=== PATIENT | male | born 1950 ===

== ENCOUNTER 2017-02-22 15:59 | Emergency (ER) | payer MEDICARE ==
[2017-02-22 17:11] VITALS: RESP 20; O2SAT 97
--- NOTE | 2017-02-22 18:07 | C.PDOC ---
History Of Present Illness 66 yr male presents to the ER with complaints of swelling to the upper front tooth gum, with pain and headache for 1 day. Patient also reports of chronic back pain. Patient denies fever, nausea, vomiting, abdominal pain, diarrhea, dysuria, weakness or numbness. Time Seen by Provider: 02/22/17 17:16 Chief Complaint (Nursing): Headache History Per: Patient History/Exam Limitations: no limitations Onset/Duration Of Symptoms: Days (1) Current Symptoms Are (Timing): Still Present Pain Scale Rating Of: 5 Recent travel outside of the [place]: No Past Medical History Reviewed: Historical Data, Nursing Documentation, Vital Signs Vital Signs: Last Vital Signs Temp 98.7 F 02/22/17 18:31 Pulse 104 H 02/22/17 18:31 Resp 20 02/22/17 18:31 BP 152/62 H 02/22/17 18:31 Pulse Ox 97 02/22/17 18:31 Family History: States: No Known Family Hx - Social History Hx Alcohol Use: Yes Hx Substance Use: No - Immunization History Hx Tetanus Toxoid Vaccination: No Hx Influenza Vaccination: No Hx Pneumococcal Vaccination: No Review Of Systems Except As Marked, All Systems Reviewed And Found Negative. Constitutional: Negative for: Fever ENT: Positive for: Other ((+) Swelling and pain to the upper front tooth gum) Gastrointestinal: Negative for: Nausea, Vomiting, Abdominal Pain, Diarrhea Genitourinary: Negative for: Dysuria Musculoskeletal: Positive for: Back Pain (Chronic back pain) Neurological: Negative for: Weakness, Numbness Physical Exam - Physical Exam Appears: Non-toxic, No Acute Distress Skin: Warm, Dry, No Rash Head: Atraumatic, Normacephalic Eye(s): bilateral: Normal Inspection, PERRL, EOMI Oral Mucosa: Moist Teeth: Other (Poor dentition. Right central incisor tender. ) Gingiva: Swelling (To the base of right central incisor.) Throat: Normal, No Erythema, No Exudate Neck: Normal, Normal ROM, Supple Lymphatic: Normal Exam, No Adenopathy Chest: Symmetrical, No Tenderness Cardiovascular: Rhythm Regular, No Friction Rub, No Murmur Respiratory: Normal Breath Sounds, No Rales, No Rhonchi, No Stridor, No Wheezing Extremity: Normal ROM, No Swelling Neurological/Psych: Oriented x3, Normal Speech, Normal Motor Gait: Steady ED Course And Treatment O2 Sat by Pulse Oximetry: 97 (on RA) Pulse Ox Interpretation: Normal Medical Decision Making Medical Decision Making: PLAN: * Flexeril PO * Motrin PO On re-exam, the patient reports improvement of symptoms. Lungs remain CTA, heart is RRR, abdomen is soft, non-tender and tolerating PO well. Ambulatory in the ED with steady gait. Follow up with the medical doctor within 1-2 days without fail, Return if worsened, Disposition - Disposition Referrals: Oliver Rodriguez DMD [Staff Provider] - Disposition: HOME/ ROUTINE Disposition Time: 18:31 Condition: STABLE Additional Instructions: Follow up with the Dentist within 1-2 days without fail, Return if worsened, Prescriptions: Amoxicillin/Clavulanate [Augmentin 875 MG-125 MG] 1 tab PO BID #14 tab Ibuprofen [Motrin Tab] 800 mg PO TID #20 tab traMADol [Ultram] 50 mg PO Q6 PRN #15 tab PRN Reason: Pain Instructions: Dental Abscess (ED) Print Language: SYRIAC - Clinical Impression Clinical Impression: Headache, Dental abscess - 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 - Scribe Statement The provider has reviewed the documentation as recorded by the Scribe Jessica Maldonado All medical record entries made by the Aftabibkingston were at my direction and personally dictated by me. I have reviewed the chart and agree that the record accurately reflects my personal performance of the history, physical exam, medical decision making, and the department course for this patient. I have also personally directed, reviewed, and agree with the discharge instructions and disposition.
[2017-02-22 18:32] VITALS: BP 152/62; PULSE 104; TEMP 98.7
== END 2017-02-22 18:35 | disposition home or self-care (01) ==
LOC: EDBD → C.ER 15:59
DX: K04.7 Periapical abscess without sinus (principal); R51 Headache

== ENCOUNTER 2017-02-23 01:47 | Emergency (ER) | payer MEDICARE ==
[2017-02-23 02:11] VITALS: O2SAT 98
--- NOTE | 2017-02-23 03:22 | C.PDOC ---
History Of Present Illness 66 year old patient presents to the ED complaining of dental pain. Patient was seen in the ED yesterday for the same complaint. He was discharged with prescription for pain medications, but patient reports he does not have money to buy them. Patient also complains of chronic back pain. Patient denies any trauma, numbness, weakness, or incontinence. Time Seen by Provider: 02/23/17 02:20 Chief Complaint (Nursing): Dental Pain History Per: Patient History/Exam Limitations: no limitations Onset/Duration Of Symptoms: Days (1) Current Symptoms Are (Timing): Still Present Severity: Mild Pain Scale Rating Of: 3 Quality: Positive for: "Pain" Recent travel outside of the [place]: No Additional History Per: Prior Records Past Medical History Reviewed: Historical Data, Nursing Documentation, Vital Signs Vital Signs: Last Vital Signs Temp 98.3 F 02/23/17 03:44 Pulse 78 02/23/17 03:44 Resp 16 02/23/17 03:44 BP 147/92 H 02/23/17 03:44 Pulse Ox 98 02/23/17 06:14 Family History: States: Unknown Family Hx - Social History Hx Alcohol Use: Yes Hx Substance Use: No - Immunization History Hx Tetanus Toxoid Vaccination: No Hx Influenza Vaccination: No Hx Pneumococcal Vaccination: No Review Of Systems Except As Marked, All Systems Reviewed And Found Negative. ENT: Positive for: Other (dental pain) Genitourinary: Negative for: Incontinence Musculoskeletal: Positive for: Back Pain Neurological: Negative for: Weakness, Numbness Physical Exam - Physical Exam Appears: Non-toxic, No Acute Distress Skin: Warm, Dry Head: Atraumatic, Normacephalic Eye(s): bilateral: Normal Inspection, PERRL, EOMI Tongue: Normal Appearing Lips: Normal Appearing Teeth: Other (Poor dentition. Right central incisor tender) Gingiva: Swelling (To the base of right central incisor) Throat: Normal Neck: Normal ROM, Supple Chest: Symmetrical Cardiovascular: Rhythm Regular Back: No CVA Tenderness, Other (mild paralumbar tenderness) Extremity: Normal ROM, No Calf Tenderness, Capillary Refill (<2 seconds), No Deformity, Other (bilateral lower extremities: good strength and sensation) Neurological/Psych: Oriented x3, Normal Speech, Normal Cognition Gait: Steady ED Course And Treatment O2 Sat by Pulse Oximetry: 98 (RA) Pulse Ox Interpretation: Normal Progress Note: Flexeril and Toradol are given. Reassessment Condition: Improved (pt sleeping comfortably, reports feeling better) Disposition Counseled Patient/Family Regarding: Diagnosis, Need For Followup, Rx Given - Disposition Referrals: [facility] [Outside] Disposition: HOME/ ROUTINE Disposition Time: 03:22 Condition: STABLE Additional Instructions: Take meds Follow up in clinic Return to ER if worse Instructions: Back Pain (ED), Toothache (ED) - Clinical Impression Clinical Impression: Back pain - PA / NURSE ORTHOPEDIC / Resident Statement MD/DO has reviewed & agrees with the documentation as recorded. - Scribe Statement The provider has reviewed the documentation as recorded by the Scribe Becky Jeffery All medical record entries made by the Scribe were at my direction and personally dictated by me. I have reviewed the chart and agree that the record accurately reflects my personal performance of the history, physical exam, medical decision making, and the department course for this patient. I have also personally directed, reviewed, and agree with the discharge instructions and disposition.
[2017-02-23 03:45] VITALS: BP 147/92; PULSE 78; RESP 16; TEMP 98.3
== END 2017-02-23 03:55 | disposition home or self-care (01) ==
LOC: C.ER 01:47 → EDBD 01:47 → C.ER 03:55
DX: M54.9 Dorsalgia, unspecified (principal)
CPT/HCPCS: 96372; 99283; J1885

== ENCOUNTER 2017-10-27 09:40 | Emergency (ER) | payer MEDICARE ==
[2017-10-27 09:45] VITALS: TEMP 98.6; O2SAT 98
[2017-10-27] MEDS ORDERED: Naproxen 550 mg Tab PO STA (10:52)
[2017-10-27] MEDS ORDERED: Naproxen 550 mg Tab PO ONE (10:58)
--- NOTE | 2017-10-27 11:17 | C.PDOC ---
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 Onset/Duration Of Symptoms: Days (1) Current Symptoms Are (Timing): Still Present Severity: Moderate Description Of Pain/Injury (Context): Pt has loose teeth already and granddaugher hit his mouth yesterday Quality: Positive for: "Pain" Additional History Per: Prior Records Past Medical History Reviewed: Historical Data, Nursing Documentation, Vital Signs Vital Signs: Last Vital Signs Temp 98.6 F 10/27/17 09:43 Pulse 100 H 10/27/17 09:43 Resp 18 10/27/17 09:43 BP 168/82 H 10/27/17 09:43 Pulse Ox 98 10/27/17 09:43 - Medical History PMH: No Chronic Diseases Family History: States: Unknown Family Hx - Social History Hx Alcohol Use: Yes Hx Substance Use: No - Immunization History Hx Tetanus Toxoid Vaccination: No Hx Influenza Vaccination: No Hx Pneumococcal Vaccination: No Review Of Systems Except As Marked, All Systems Reviewed And Found Negative. Constitutional: Negative for: Fever, Weakness ENT: Positive for: Mouth Pain. Negative for: Throat Pain Cardiovascular: Negative for: Chest Pain Respiratory: Negative for: Shortness of Breath Gastrointestinal: Negative for: Vomiting Musculoskeletal: Negative for: Neck Pain Neurological: Negative for: Headache Physical Exam - Physical Exam Appears: Non-toxic, No Acute Distress Skin: Normal Color, Warm, Dry, No Rash Head: Atraumatic, Normacephalic Eye(s): bilateral: Normal Inspection, PERRL, EOMI Oral Mucosa: Moist, No Drooling, No Trismus Lips: Normal Appearing Teeth: Caries, Tender To Palpation (upper incisors), Loose, No Avulsed, Other ( Very poor dentition) Gingiva: Tender, No Bleeding Throat: Normal Neck: Normal ROM, Supple Lymphatic: No Adenopathy Extremity: Normal ROM Neurological/Psych: Oriented x3, Normal Speech, Normal Cognition, Normal Cranial Nerves ED Course And Treatment O2 Sat by Pulse Oximetry: 98 Pulse Ox Interpretation: Normal Disposition Counseled Patient/Family Regarding: Diagnosis, Need For Followup, Rx Given - Disposition Referrals: [facility] [Outside] Disposition: HOME/ ROUTINE Disposition Time: : Condition: STABLE Additional Instructions: Eat a soft diet. Follow up wit a Dentist as soon as possible. Return to the ER if you develop worsening of symptoms or if you have any other concerns. Prescriptions: Naproxen [Naprosyn] 1 tab PO BID PRN #20 tab PRN Reason: Pain Instructions: Acute Dental Trauma (ED) Forms: [employer] (Uruguayan), [facility] Print Language: SWEDISH - Clinical Impression Clinical Impression: Loose, teeth
[2017-10-27 11:31] VITALS: BP 121/75; PULSE 78; RESP 16
== END 2017-10-27 11:30 | disposition home or self-care (01) ==
LOC: C.ER 09:40
DX: K08.89 Other specified disorders of teeth and supporting structures (principal)

== ENCOUNTER 2018-01-23 02:36 | Emergency (ER) | payer MEDICARE, MEDICAID ==
--- NOTE | 2018-01-23 03:35 | C.PDOC ---
History Of Present Illness 67 year old male presents to the ED for evaluation of RLQ pain since yesterday. No fever or chills. Pain radiates to back and to groin. Patient is known to have a large right inguinal hernia. Patient endorses daily alcohol. Time Seen by Provider: 01/23/18 03:35 Chief Complaint (Nursing): Abdominal Pain History Per: Patient History/Exam Limitations: no limitations Onset/Duration Of Symptoms: Days Current Symptoms Are (Timing): Still Present Severity: Mild Pain Scale Rating Of: 4 Location Of Pain/Discomfort: RLQ Radiation Of Pain To:: Back, Other (Groin) Associated Symptoms: denies: Fever, Chills Recent travel outside of the [place]: No Past Medical History Reviewed: Historical Data, Nursing Documentation, Vital Signs Vital Signs: Last Vital Signs Temp 98.1 F 01/23/18 05:13 Pulse 87 01/23/18 05:13 Resp 16 01/23/18 05:13 BP 127/74 01/23/18 05:13 Pulse Ox 96 01/23/18 05:13 Family History: States: Unknown Family Hx - Social History Hx Alcohol Use: Yes Hx Substance Use: No - Immunization History Hx Tetanus Toxoid Vaccination: No Hx Influenza Vaccination: No Hx Pneumococcal Vaccination: No Review Of Systems Constitutional: Negative for: Fever, Chills ENT: Negative for: Ear Pain, Throat Pain Cardiovascular: Negative for: Chest Pain Respiratory: Negative for: Cough, Shortness of Breath Gastrointestinal: Positive for: Abdominal Pain. Negative for: Nausea, Vomiting , Diarrhea Genitourinary: Negative for: Dysuria, Frequency Musculoskeletal: Positive for: Back Pain Skin: Negative for: Rash Neurological: Negative for: Headache Physical Exam - Physical Exam Appears: Non-toxic, No Acute Distress Skin: Warm, Dry Head: Normacephalic Eye(s): bilateral: Normal Inspection Oral Mucosa: Moist Neck: Trachea Midline, Supple Chest: Symmetrical Cardiovascular: Rhythm Regular (Rate Regular ) Respiratory: No Rales, No Rhonchi, No Wheezing Gastrointestinal/Abdominal: Soft, Tenderness (Right lower quadrant tenderness with voluntary guarding ) Back: CVA Tenderness (Right ) Male Genital: Testicular Tenderness, Testicular Swelling (left), No Circumcised (Uncircumcised male ), Other (chronic right inguinal canal tenderness with enlarged scrotum) Extremity: Normal ROM, Other (DP pulses 2+) Extremity: Bilateral: Atraumatic Neurological/Psych: Oriented x3 Gait: Steady ED Course And Treatment - Laboratory Results Result Diagrams: 01/23/18 03:59 01/23/18 03:59 Disposition Counseled Patient/Family Regarding: Studies Performed, Diagnosis - Disposition Disposition Time: 03:35 Condition: FAIR Forms: [facility] (Yi) - Clinical Impression Clinical Impression: Abdominal pain, Hydrocele - Scribe Statement The provider has reviewed the documentation as recorded by the Scribe (Ivan Bush) Provider Attestation: All medical record entries made by the Scribe were at my direction and personally dictated by me. I have reviewed the chart and agree that the record accurately reflects my personal performance of the history, physical exam, medical decision making, and the department course for this patient. I have also personally directed, reviewed, and agree with the discharge instructions and disposition. Physician Patient Turnover Patient Signed Over To: Tim Mccullough DO Handoff Comments: pending testicular US and disposition
[2018-01-23] MEDS ORDERED: Sodium Chloride 0.9% 1,000 ML IV ONE (03:39)
[2018-01-23 04:02] LABS: BASO # 0.1 K/uL (0.0-0.2); BASO % 1.1 % (0.0-2.0); EOS # 0.1 K/uL (0.0-0.7); EOS % 1.2 % (0.0-4.0); HEMOGLOBIN 12.4 g/dL (12.0-18.0); LYMPH # 2.9 K/uL (1.0-4.3); LYMPH % 37.6 % (20.0-40.0); MEAN CELL VOLUME 96.6 fL (80.0-94.0); MEAN CORPUSCULAR HEMOGLOBIN 33.1 pg (27.0-31.0); MEAN CORPUSCULAR HGB CONC 34.3 g/dL (33.0-37.0); MEAN PLATELET VOLUME 9.8 fL (7.2-11.7); MONO # 0.9 K/uL (0.0-0.8); MONO % 11.1 % (0.0-10.0); NEUT # 3.8 K/uL (1.8-7.0); RBC 3.75 Mil/uL (4.40-5.90); RED CELL DISTRIBUTION WIDTH 16.1 % (11.5-14.5); WHITE BLOOD COUNT 7.7 K/uL (4.8-10.8)
[2018-01-23 04:10] LABS: INR 0.9; PROTHROMBIN TIME 10.5 SECONDS (9.7-12.2)
[2018-01-23 04:16] LABS: ALB/GLOB RATIO 1.1 (1.0-2.1); ALBUMIN 4.4 g/dL (3.5-5.0); ALT/SGPT 27 U/L (21-72); AST/SGOT 51 U/L (17-59); BLOOD UREA NITROGEN 29 mg/dL (9-20); CALCIUM 8.6 mg/dl (8.6-10.4); GFR AFRICAN-AMERICAN > 60; GFR NON-AFRICAN AMERICAN > 60; LIPASE 370 U/L (23-300)
[2018-01-23] MEDS ORDERED: Sodium Chloride 0.9% 1,000 ML ONE (04:21)
[2018-01-23] MEDS ORDERED: Iodixanol 320 MG/ML 100 ML BOTTLE IV ONE (04:33)
[2018-01-23 05:13] VITALS: RESP 16
--- NOTE | 2018-01-23 05:57 | CT ---
EXAM: CT Abdomen and Pelvis With Intravenous Contrast EXAM DATE/TIME: 01/23/2018 3:40 AM CLINICAL HISTORY: 67 years old, male; Pain; Other: Rlq & testicular pain; Additional info: Rlq abd pain, testicular pain TECHNIQUE: Axial computed tomography images of the abdomen and pelvis with intravenous contrast. All CT scans at this facility use one or more dose reduction techniques, viz.: automated exposure control; ma/kV adjustment per patient size (including targeted exams where dose is matched to indication; i.e. head); or iterative reconstruction technique. Coronal and sagittal reformatted images were created and reviewed. CONTRAST: 100 mL of visipaque administered intravenously. COMPARISON: No relevant prior studies available. FINDINGS: The liver is normal. The spleen is normal. The pancreas is normal. No gallstones. No hydronephrosis or perinephric stranding. There is a 2 cm left adrenal lesion that could be further evaluated with MR if not done previously. The bowel appears normal. A normal appendix is identified images 100 through 115 coronal images 53 through 63. The anterior wall of the urinary bladder appears slightly thickened and distinct felt to be due to motion and underdistention. There is a left hydrocele. Ultrasound would be the imaging modality of choice for evaluation of the testicles. IMPRESSION: Left hydrocele that could be further evaluated with testicular ultrasound.
--- NOTE | 2018-01-23 10:18 | US ---
Scrotal ultrasound History: Left testicular pain and swelling. Comparison: None available. Technique: Real-time sonography was performed through the scrotum. Findings: Right testes: 3.6 x 1.7 x 2.4 centimeters. Heterogeneous echotexture. Normal flow. Right epididymis measures 7 x 6 x 6 millimeters. Normal flow. Small right scrotal hydrocele. Left testes: 2.1 x 0.8 x 1.3 centimeters. Diminutive. Heterogeneous echotexture. Normal flow. Large left scrotal hydrocele with associated internal septations and internal debris. Left epididymis measures 4 x 3 x 3 millimeters. Normal flow. Impression: Large left scrotal hydrocele with associated internal septations and internal debris. Diminutive appearance of the left testicle in comparison to the right. Clinical correlation. Small right scrotal hydrocele.
[2018-01-23 11:04] VITALS: BP 150/86; PULSE 84; TEMP 98; O2SAT 99
== END 2018-01-23 11:04 | disposition home or self-care (01) ==
LOC: C.ER 02:36
DX: N43.3 Hydrocele, unspecified (principal); R10.31 Right lower quadrant pain
CPT/HCPCS: 74177; 76870; 80053; 83690; 85025; 85610; 85730; 96374; 96375; 99285; J1885; J7040; Q9967

== ENCOUNTER 2018-05-12 17:31 | Emergency (ER) | payer OTHER ==
[2018-05-12 17:43] VITALS: O2SAT 99
[2018-05-12] MEDS ORDERED: Sodium Chloride 0.9% 1,000 ML IV ONE (18:20)
[2018-05-12 18:33] LABS: MONO # 0.3 K/uL (0.0-0.8); NEUT # 5.2 K/uL (1.8-7.0); NEUT % 76.4 % (50.0-75.0); NRBC % 0.1 % (0.0-2.0)
--- NOTE | 2018-05-12 18:40 | C.PDOC ---
History Of Present Illness 67 y/o male with no significant PMHx, presents to the ED for evaluation s/p near syncopal episode that occurred earlier today. States he was walking on the sidewalk today when his vision became dark and he felt dizzy. He lowered himself to the ground and sat for about 30 minutes as the dizziness, headache, and nausea continued. There was no LOC or head trauma. A neighbor saw him and called EMS. On arrival, patient states vision is no longer blurry. Currently the headache is rated at 6/10. Patient also complaining of neck pain, nausea, and generalized weakness. Otherwise denies chest pain, SOB, abdominal pain, or other complaints. Time Seen by Provider: 05/12/18 17:40 Chief Complaint (Nursing): Dizziness/Lightheaded History Per: Patient History/Exam Limitations: no limitations Onset/Duration Of Symptoms: Hrs Current Symptoms Are (Timing): Still Present Past Medical History Reviewed: Historical Data, Nursing Documentation, Vital Signs Vital Signs: Last Vital Signs Temp 98.4 F 05/12/18 17:42 Pulse 94 H 05/12/18 17:42 Resp 17 05/12/18 17:42 BP 129/86 05/12/18 17:42 Pulse Ox 99 05/12/18 20:54 - Medical History PMH: No Chronic Diseases Surgical History: No Surg Hx Family History: States: Unknown Family Hx - Social History Hx Tobacco Use: Yes Hx Alcohol Use: Yes Hx Substance Use: No - Immunization History Hx Tetanus Toxoid Vaccination: No Hx Influenza Vaccination: No Hx Pneumococcal Vaccination: No Review Of Systems Except As Marked, All Systems Reviewed And Found Negative. Constitutional: Positive for: Weakness (generalized) Cardiovascular: Negative for: Chest Pain Respiratory: Negative for: Shortness of Breath Gastrointestinal: Positive for: Nausea. Negative for: Abdominal Pain Musculoskeletal: Positive for: Neck Pain Neurological: Positive for: Headache, Dizziness Physical Exam - Physical Exam Appears: Non-toxic, No Acute Distress Skin: Normal Color, Warm, Dry Head: Atraumatic, Normacephalic Eye(s): bilateral: Normal Inspection, PERRL, EOMI Nose: Normal Oral Mucosa: Moist Neck: Normal ROM, No Midline Cervical Tenderness, Paracervical Tenderness Chest: Symmetrical, No Deformity Cardiovascular: Rhythm Regular, No Murmur Respiratory: Normal Breath Sounds, No Rales, No Rhonchi, No Wheezing Gastrointestinal/Abdominal: Soft, No Tenderness, No Distention Extremity: Bilateral: Atraumatic, Normal Color And Temperature, Normal ROM Pulses: Left Dorsalis Pedis: Normal, Right Dorsalis Pedis: Normal Neurological/Psych: Oriented x3, Normal Speech, Normal Cranial Nerves, Cerebellar Signs (normal), Normal Motor, Normal Sensation, Other (No focal deficits) Gait: Steady ED Course And Treatment - Laboratory Results Result Diagrams: 05/12/18 18:26 05/12/18 18:26 ECG: Interpreted By Me, Viewed By Me ECG Rhythm: Sinus Rhythm (at 86 bpm, with normal intervals, left axis deviation , no ST or T wave abnormalities) O2 Sat by Pulse Oximetry: 99 (RA) Pulse Ox Interpretation: Normal - Radiology CXR: Interpreted by Me, Viewed By Me CXR Interpretation: Yes: No Acute Disease - CT Scan/US CT Head Other Rad Studies (CT/US): Read By Radiologist, Radiology Report Reviewed CT/US Interpretation: FINDINGS: Brain: Mild volume loss is seen in keeping with age. Mild decrease in attenuation of the. periventricular white matter likely related to small vessel ischemic change. The brain otherwise with. normal torres-white matter differentiation, demonstrating no edema, mass effect, acute hemorrhage, or. focal mass. Ventricles: Unremarkable. No ventriculomegaly. Bones/joints: Unremarkable. No acute fracture. Soft tissues : Unremarkable. Sinuses: Unremarkable as visualized. No acute sinusitis. Mastoid air cells: Unremarkable as visualized. No mastoid effusion. IMPRESSION : There is mild atrophy and chronic white matter ischemic changes, with no evidence of an acute. intracranial abnormality. Thank you for allowing us to participate in the care of your patient. Dictated and Authenticated by: Gary Moss MD. 05/12/2018 8:21 PM Eastern Time ([place] & [place]) CT C-Spine Other Rad Studies (CT/US): Read By Radiologist, Radiology Report Reviewed CT/US Interpretation: FINDINGS: Vertebrae: Unremarkable. No acute fracture. Discs/spinal canal/neural foramina: Multilevel degenerative disc disease of the cervical spine,. involving levels C3-C4 bilaterally, C6-C7 on the right , with marginal osteophytes encroaching upon. the thecal sac and neural foramen with potential for neural impingement. No spinal canal stenosis. Soft tissues: Unremarkable. Vasculature: There is moderate atherosclerotic calcification of the carotid arteries. The aorta. demonstrates moderate atherosclerotic calcification. Sinuses: There is minimal fluid in the posterior margin of the sphenoid sinus. Lung apices: Unremarkable as visualized. IMPRESSION: Degenerative changes as described with multilevel foraminal narrowing. No acute fractures are. seen. No significant spinal stenosis. Thank you for allowing us to participate in the care of your patient. Dictated and Authenticated by: Gary Moss MD. 05/12/2018 8:25 PM Eastern Time ([place] & [place]) Medical Decision Making Medical Decision Making: Initial Impression: Near syncope Time: 18:16 Initial Plan: --EKG --CT Head w/o contrast --CT C-Spine w/o contrast --CMP --Troponin I --CBC --Urinalysis --Urine culture --Chest x-ray --IV fluids --Meclizine 12.5 mg PO --Tylenol 650 mg PO --Zofran 4 mg IVP Labs reviewed: Negative troponin. Elevated bilirubin. Potassium 3.5. CT scans are negative. CXR preliminary reading is negative. 20:31 On reevaluation, patient reports 100% resolution of symptoms. On examination patient is AAOx3, remains afebrile, with no further complaints. Patient is medically stable and will be discharged home. Disposition Counseled Patient/Family Regarding: Studies Performed, Diagnosis, Need For Followup - Disposition Referrals: [facility] [Outside] Disposition Time: 20:52 Condition: STABLE Additional Instructions: follow up with your doctor or medical clinic within 2 days call to make an appointment maintain hydration return to ER is symptoms worsens or progress Prescriptions: Naproxen [Naprosyn] 500 mg PO BID PRN #16 tab PRN Reason: Pain, Moderate (4-7) Instructions: Neck Pain, Dehydration, Adult (DC), Dizziness, Nonvertigo, (DC) Forms: [facility] (Mongolian), General Discharge Instructions - POA Present On Arrival: None - Clinical Impression Clinical Impression: Dizziness, Heat exposure, Neck pain - Scribe Statement The provider has reviewed the documentation as recorded by the Scribe (Esthela Oh) Provider Attestation: All medical record entries made by the Scribe were at my direction and personally dictated by me. I have reviewed the chart and agree that the record accurately reflects my personal performance of the history, physical exam, medical decision making, and the department course for this patient. I have also personally directed, reviewed, and agree with the discharge instructions and disposition.
[2018-05-12 18:41] LABS: BASO % 0.3 % (0.0-2.0); EOS % 0.4 % (0.0-4.0); LYMPH # 1.2 K/uL (1.0-4.3); MEAN CORPUSCULAR HEMOGLOBIN 33.4 pg (27.0-31.0); MEAN CORPUSCULAR HGB CONC 33.8 g/dL (33.0-37.0); MEAN PLATELET VOLUME 11.4 fL (7.2-11.7); MONO % 4.9 % (0.0-10.0); RBC 4.43 Mil/uL (4.40-5.90); WHITE BLOOD COUNT 6.7 K/uL (4.8-10.8)
[2018-05-12 18:42] LABS: HEMOGLOBIN 14.8 g/dL (12.0-18.0); MEAN CELL VOLUME 98.8 fL (80.0-94.0)
[2018-05-12 18:45] LABS: ALB/GLOB RATIO 1.2 (1.0-2.1); ALBUMIN 4.4 g/dL (3.5-5.0); ALT/SGPT 31 U/L (21-72); AST/SGOT 71 U/L (17-59); BLOOD UREA NITROGEN 20 mg/dL (9-20); CALCIUM 9.1 mg/dl (8.6-10.4); GFR AFRICAN-AMERICAN > 60; GFR NON-AFRICAN AMERICAN 51
[2018-05-12 20:28] LABS: SQUAMOUS EPITHIAL < 1 /hpf (0-5); URINE BACTERIA RARE (<OCC); URINE BILIRUBIN NEGATIVE (NEGATIVE); URINE BLOOD NEGATIVE (NEGATIVE); URINE CLARITY Clear (Clear); URINE COLOR Straw (YELLOW); URINE GLUCOSE (UA) NORMAL (Normal); URINE LEUKOCYTE ESTERASE NEG Leu/uL (Negative); URINE PROTEIN NEGATIVE (NEGATIVE); URINE UROBILINOGEN NORMAL mg/dL (0.2-1.0)
[2018-05-12 21:10] VITALS: BP 142/90; PULSE 81; RESP 18; TEMP 99
--- NOTE | 2018-05-13 08:36 | RAD ---
HISTORY: COMPARISON: 08/31/2014. TECHNIQUE: Chest PA and lateral FINDINGS: LINES AND TUBES: None. LUNG AND PLEURA: The lungs are well inflated and clear. No pleural effusion or pneumothorax. HEART AND MEDIASTINUM: The heart is not enlarged. The hilar and mediastinal contours are within normal limits. SKELETAL STRUCTURES: The bony structures are within normal limits for the patient's age. VISUALIZED UPPER ABDOMEN: Normal. OTHER FINDINGS: None. IMPRESSION: No active pulmonary disease.
--- NOTE | 2018-05-13 09:39 | CT ---
PROCEDURE: CT HEAD WITHOUT CONTRAST. HISTORY: Dizziness COMPARISON: None available. TECHNIQUE: Axial computed tomography images were obtained through the head/brain without intravenous contrast. Radiation dose: Total exam DLP = 994.3 mGy-cm. This CT exam was performed using one or more of the following dose reduction techniques: Automated exposure control, adjustment of the mA and/or kV according to patient size, and/or use of iterative reconstruction technique. . FINDINGS: HEMORRHAGE: No acute parenchymal, subarachnoid nor extra-axial hemorrhage. BRAIN: Mild chronic periventricular white matter ischemic changes. . Additionally, there are scattered chronic bilateral basal nuclei lacunar type infarcts. Note the possibility of a small hyperacute infarct cannot be excluded on this study and there is any concern, recommend followup MRI Moderate generalized volume loss. VENTRICLES: No obstructive Hydrocephalus. CALVARIUM: No acute calvarial fractures. PARANASAL SINUSES: Under pneumatization of the right chamber sphenoid sinus with sclerotic changes of the peripheral garcía and inferior sinus septum MASTOID AIR CELLS: Unremarkable as visualized. No inflammatory changes. OTHER FINDINGS: None. IMPRESSION: Acute intracranial hemorrhage. Mild chronic white matter and basal nuclei ischemic changes. . Note that the possibility of a small hyperacute infarct not excluded if there is any concern, consider followup MRI diffusion imaging Moderate generalized volume loss.
--- NOTE | 2018-05-13 09:49 | CT ---
PROCEDURE: CT scan cervical spine 05/12/2018 HISTORY: Status post fall COMPARISON: No prior study available for comparison TECHNIQUE: Axial computed tomography images were obtained of the cervical spine without the use of intravenous contrast. Coronal and sagittal reformatted images were created and reviewed. Radiation dose: Total exam DLP = 567.6 mGy-cm. This CT exam was performed using one or more of the following dose reduction techniques: Automated exposure control, adjustment of the mA and/or kV according to patient size, and/or use of iterative reconstruction technique. FINDINGS: VERTEBRAE: The current study reveals no new compression fractures nor retropulsed fragments. . Vertebral bodies exhibit normal stature. Vertebral bodies and facets also relatively normally aligned. DISCS/SPINAL CANAL/NEURAL FORAMINA: Multilevel degenerative spondylosis. At C2-C3 level, there is mild anterior disc space narrowing. Small central and bilateral disc bulge flattens the ventral surface of thecal sac reaching but not significantly compressing the ventral surface cord. Central canal appears adequate. The uncovertebral and facet joints also mildly hypertrophic with bilateral foraminal narrowing right greater than left. At the C3-C4 level, there is disc space narrowing, cortical endplate irregularity with small broad-based disc ridge complex contiguous with hypertrophic uncovertebral joints. The facets also hypertrophic left greater than right. Changes result in mild central canal stenosis and cord compression. Exit foramina stenotic bilaterally. At the C4-C5 level, there is minor disc space narrowing. Small central bilateral disc bulge ridge complex contiguous hypertrophic uncovertebral joints. Facets also hypertrophic left greater than right. Changes result in mild canal narrowing and cord compression. Exit foramina stenotic bilaterally. At the C6-C7 level, there is marked disc narrowing with endplate eburnation and small to medium-sized disc ridge complex contiguous hypertrophic uncovertebral joints. Facets also hypertrophic. Changes result and stenosis [id number] central canal and cord compression. Exit foramina stenotic bilaterally. At the C7-T1 level, there is relatively adequate disc height. Asymmetric disc herniation larger on the left than right is present. The disc results in mild canal narrowing and cord compression. Exit foramina are narrowed bilaterally. PARASPINAL SOFT TISSUES: Unremarkable. OTHER FINDINGS: Thyroid gland slightly heterogeneous with what may represent least 1 small low-attenuation nodule right lobe. Consider followup thyroid ultrasound. Note made of what appears represent peripheral paraseptal emphysematous changes in the lung apices and upper lobes. . Vascular calcifications both carotid bifurcations extending into the proximal internal carotid artery. Note also made of a very tiny approximately 2.3 mm density which appears be adherent to lateral wall of the trachea at the level of the AP window. This may represent mucous secretion. Followup pulmonary consultation suggested. IMPRESSION: No acute fractures. Multilevel degenerative spondylosis. Small intraluminal density adherent to the lateral wall of the trachea possibly representing focal area mucous secretion. Pulmonary consultation recommended to exclude other pathology. Note this report was placed PA review folder followup.
--- NOTE | 2018-05-15 15:32 | CARD ---
APPROVED REPORT EKG Measurement Heart [id number] <Conclusion> Normal sinus rhythm Left axis deviation Abnormal ECG
== END 2018-05-12 21:10 | disposition home or self-care (01) ==
LOC: C.ER 17:31
DX: R42 Dizziness and giddiness (principal); T67.9XXA Effect of heat and light, unspecified, initial encounter; X30.XXXA Exposure to excessive natural heat, initial encounter; M54.2 Cervicalgia
CPT/HCPCS: 70450; 71046; 72125; 80053; 81001; 82948; 84484; 85025; 87086; 93005; 96361; 96374; 96375; 99285; J1885; J2405; J7030

== ENCOUNTER 2018-06-26 09:02 | Emergency (ER) | payer OTHER ==
[2018-06-26 09:13] VITALS: TEMP 98.4
--- NOTE | 2018-06-26 09:57 | C.PDOC ---
History Of Present Illness 67 year old male presents to ED for evaluation of left shoulder pain after fall. Patient states he tripped, and fell on to his left shoulder today. Notes he is unable to move his left shoulder. Denies taking any pain meds. Otherwise, denies extremity weakness, numbness, or any other associated symptoms. Time Seen by Provider: 06/26/18 09:23 Chief Complaint (Nursing): Upper Extremity Problem/Injury History Per: Patient History/Exam Limitations: no limitations Onset/Duration Of Symptoms: Hrs Current Symptoms Are (Timing): Still Present Quality: "Pain" Recent travel outside of the [place]: No Additional History Per: Patient Past Medical History Reviewed: Historical Data, Nursing Documentation, Vital Signs Vital Signs: Last Vital Signs Temp 98.4 F 06/26/18 09:09 Pulse 90 06/26/18 10:08 Resp 18 06/26/18 10:08 BP 129/78 06/26/18 10:08 Pulse Ox 99 06/26/18 10:51 Family History: States: Unknown Family Hx - Social History Hx Tobacco Use: Yes Hx Alcohol Use: Yes Hx Substance Use: No - Immunization History Hx Tetanus Toxoid Vaccination: No Hx Influenza Vaccination: No Hx Pneumococcal Vaccination: No Review Of Systems Except As Marked, All Systems Reviewed And Found Negative. Constitutional: Negative for: Fever, Chills Musculoskeletal: Positive for: Shoulder Pain (left) Neurological: Negative for: Weakness, Numbness Physical Exam - Physical Exam Appears: Non-toxic, No Acute Distress Skin: Normal Color, Warm, Dry Head: Atraumatic, Normacephalic Eye(s): bilateral: Normal Inspection Oral Mucosa: Moist Neck: Normal ROM, Supple Extremity: No Normal ROM (limited ROM of left shoulder secondary to pain), Tenderness (left shoulder), Capillary Refill (less than 2 seconds), No Deformity , No Swelling Extremity: Bilateral: Normal Color And Temperature Pulses: Left Radial: Normal, Right Radial: Normal Neurological/Psych: Oriented x3, Normal Speech, Normal Sensation ED Course And Treatment O2 Sat by Pulse Oximetry: 99 (RA) Pulse Ox Interpretation: Normal - Other Rad Left shoulder x-ray X-Ray: Viewed By Me, Read By Radiologist Interpretation: No acute fracture or dislocation Medical Decision Making Medical Decision Making: Impression: 67 year old male with left shoulder pain after trip and fall. Plan: * Tylenol * Left shoulder x-ray Xray reviewed viewed by me showing no acute fracture or dislocation. Arm sling applied. Patient advised to take analgesic and to follow up with ortho if pain persists. Disposition Counseled Patient/Family Regarding: Diagnosis, Need For Followup, Rx Given - Disposition Referrals: Morales Mar III, MD [Staff Provider] - Disposition: HOME/ ROUTINE Disposition Time: 10:00 Condition: GOOD Additional Instructions: radiografa normal, sin fractura Por favor aplique hielo en el zena 15 minutos ariadne veces al da. [place] Motrin seg n sea necesario para el dolor cada 6 horas Fransisco un seguimiento con ortopedia si el dolor persiste shaka magalis semana. Prescriptions: Ibuprofen [Motrin] 600 mg PO Q8 #30 tab Instructions: Shoulder Sprain Forms: [employer] (Icelandic) Print Language: TONGAN - POA Present On Arrival: None - Clinical Impression Clinical Impression: Shoulder contusion - PA / INFORMATION CODER / Resident Statement MD/DO has reviewed & agrees with the documentation as recorded. - Scribe Statement The provider has reviewed the documentation as recorded by the Scribe Gerber Jeffery All medical record entries made by the Aftabibkingston were at my direction and personally dictated by me. I have reviewed the chart and agree that the record accurately reflects my personal performance of the history, physical exam, medical decision making, and the department course for this patient. I have also personally directed, reviewed, and agree with the discharge instructions and disposition.
[2018-06-26 10:10] VITALS: BP 129/78; PULSE 90; RESP 18
[2018-06-26 10:28] VITALS: O2SAT 99
--- NOTE | 2018-06-26 15:09 | RAD ---
Date of service: 06/26/2018 PROCEDURE: Radiographs of the Left Shoulder HISTORY: pain s.p fall COMPARISON: No prior. FINDINGS: BONES: This suspicious for avulsion fracture at the distal portion of the left clavicle. Otherwise no evidence of acute fracture. JOINTS: Normal. Glenohumeral and acromioclavicular joints preserved. No osteoarthritis. SOFT TISSUES: Normal. OTHER FINDINGS: None. IMPRESSION: Suspicious for avulsion fracture versus soft tissue calcification at the distal left clavicle.
== END 2018-06-26 10:10 | disposition home or self-care (01) ==
LOC: C.ER 09:02
DX: S40.012A Contusion of left shoulder, initial encounter (principal); W01.0XXA Fall on same level from slipping, tripping and stumbling without subsequent striking against object, initial encounter